=== PATIENT | male | born 1945 | race Caucasian/White ===

== ENCOUNTER 2021-07-13 18:19 | Emergency (ER) | payer OTHER, SELFPAY ==
--- NOTE | 2021-07-13 | DI.RAD.S_ITS ---
PROCEDURE: XR PELVIS 1-2V INDICATIONS: FALL TECHNIQUE: Single AP view(s) of the pelvis acquired. COMPARISON: None. FINDINGS: Bones: No fractures or dislocations. No suspicious bony lesions. Soft tissues: Visualized bowel gas pattern is normal. No suspicious soft tissue calcifications. IMPRESSION: No fracture identified. Dictated by: Delta Ruggiero M.D. on 07/13/2021 at 19:48 Approved by: Delta Ruggiero M.D. on 07/13/2021 at 19:49
[2021-07-13 18:24] VITALS: BP 142/86; PULSE 69; O2SAT 96
[2021-07-13 18:25] VITALS: BMI 28.5
[2021-07-13 18:29] VITALS: BP 142/86; PULSE 68; TEMP 36.7; O2SAT 98
--- NOTE | 2021-07-13 18:29 | DI.RAD.S_ITS ---
PROCEDURE: XR KNEE RT 1TO2V INDICATIONS: Trauma, fall, knee pain TECHNIQUE: Two views of the knee were acquired. COMPARISON: None. FINDINGS: No fracture demonstrated. Severe osteoarthritic changes in all 3 compartments of the knee. Moderate-sized knee joint effusion. IMPRESSION: No acute fracture. Moderate-sized knee joint effusion. Dictated by: Delta Ruggiero M.D. on 07/13/2021 at 19:44 Approved by: Delta Ruggiero M.D. on 07/13/2021 at 19:45
--- NOTE | 2021-07-13 18:30 | DI.RAD.S_ITS ---
PROCEDURE: XR FEMUR RT MIN 2V INDICATIONS: Trauma, fall, thigh pain TECHNIQUE: Two views of the femur were acquired. COMPARISON: None. FINDINGS: Bones: No fractures or dislocations. No suspicious bony lesions. Soft tissues: No suspicious soft tissue calcifications or masses. IMPRESSION: No fracture. Dictated by: Delta Ruggiero M.D. on 07/13/2021 at 19:49 Approved by: Delta Ruggiero M.D. on 07/13/2021 at 19:50
--- NOTE | 2021-07-13 18:50 | ED.FALL ---
HPI - Fall General Chief Complaint: Fall Stated Complaint: GLF on ice,right leg pain Time Seen by Provider: 07/13/21 19:49 Source: patient Mode of arrival: EMS History of Present Illness HPI Narrative: 76-year-old male nonsmoker without significant medical history presents by EMS for evaluation of a ground level fall suffered just prior to arrival. He stepped on some uneven ground and he tripped and fell forward on to both knees but significantly twisted his right knee. Since the incident he has been unable to of weight bear on his right knee. He denies any head neck or back pain. He has had no chest pain, shortness of breath nor nausea or vomiting. He is not dizzy nor weak or lightheaded. He denies any numbness, tingling or weakness of his extremities. He does have a longstanding history of a bad right knee in has been told he will likely need surgery at some point any ways. Related Data Allergies Allergy/AdvReac Type Severity Reaction Status Date / Time No Known Drug Allergies Allergy Verified 07/13/21 18:30 Review of Systems Review of Systems Narrative: GENERAL: Denies chills, fatigue, malaise, fever, sweats. HEENT: Denies sinus pain, ear pain, sore throat, difficulty swallowing, dizziness. RESPIRATORY: Denies dyspnea, cough, wheezing, hemoptysis, sputum. CARDIOVASCULAR: Denies chest pain, palpitations, orthopnea, edema, GASTROINTESTINAL: Denies nausea, vomiting, abdominal pain, diarrhea, constipation, melena. : Denies dysuria, frequency, incontinence, hematuria, urinary retention. MUSCULOSKELETAL: See HPI SKIN: Denies rash, skin lesions, or other NEUROLOGIC: Denies weakness, headache, numbness, change in speech, confusion, seizures, incoordination. PSYCHIATRIC: No concerning psychosocial issues. 12 point review of systems is negative except for those stated above Patient History Social History Smoking Status: Unknown if ever smoked Smoking Status: Unknown if ever smoked alcohol intake frequency: holidays/special occasions only Substance Use Type: does not use Exam Narrative Exam Narrative: GENERAL: [76] year old patient appears stated age. Well-developed patient, in mild distress. HEAD: Atraumatic. Normocephalic. EYES: Pupils equal round and reactive. Extraocular motions intact. No scleral icterus. No injection or drainage. ENT: Nose without bleeding, purulent drainage. Throat without erythema, tonsillar hypertrophy or exudate. Airway patent. NECK: Trachea midline. Non tender CARDIOVASCULAR: Regular rate and rhythm without murmurs, gallops, or rubs. RESPIRATORY: Clear to auscultation. Breath sounds equal bilaterally. No wheezes, rales, or rhonchi. GASTROINTESTINAL: Abdomen soft, non-tender, nondistended. EXTREMITIES: No pain in upper extremities or bilateral hips, right knee tender to palpate with mild joint effusion, no obvious ligamentous instability. There is some joint line tenderness at the lateral side. Minimal if any tenderness to palpation of the left knee BACK: Nontender without deformity or crepitance. No flank tenderness. NEURO: AOx3. SKIN: No rash or erythema of visible areas Initial Vital Signs Initial Vital Signs: Vital Signs Pulse Rate 69 07/13/21 18:24 Blood Pressure 142/86 H 07/13/21 18:24 Pulse Oximetry 96 07/13/21 18:24 Procedures Orthopedic Splinting/Casting Injury #1: Side: right Lower Extremity Injury Location: knee Lower Extremity Immobilizer: knee immobilizer Other Orthopedic Equipment: crutches Post splinting neuro exam: intact Post splinting vascular exam: intact Placed by: Nursing Course Orders Ordered: ED Orders 07/13/21 18:29 XR knee RT 1to2V Stat 07/13/21 18:30 XR femur RT min 2V Stat 07/13/21 20:52 CT LE RT wo con Stat Vital Signs Vital signs: Vital Signs - 8 hr 07/13/21 18:24 07/13/21 18:29 07/13/21 22:57 Temperature 98.1 F Pulse Rate 69 68 64 Blood Pressure 142/86 H 142/86 H 145/88 H Pulse Oximetry 96 98 97 MDM - Fall Imaging Data Extremity x-ray #1: Radiologist's Impression: Chart Viewer Diagnostics Subcategory All Activity ??:?? All Time ??:?? All Subcategories Filter Laboratory Imaging Microbiology Pathology Blood Bank Tests Cardiovascular Other Specialty DATE TYPE STATUS REF RANGE/AUTHOR Hx Today 20:[address] Signed Delta Ruggiero Today 18:30 Femur X-Ray Signed Delta Ruggiero Today 18:29 Knee X-Ray Signed Delta Ruggiero Today 18:29 Knee X-Ray Cancelled Today 00:00 Pelvis X-Ray Signed Delta Ruggiero Robert B ED 76, M?1945 MRN#? [id number] REG ER,?Main ED??R06?? 180.34cm 92.986kg BMI: 28.6kg/m? Fall Acc#? [id number] Resus Status Not Ordered No Hx Avail Special Indicators No Data to Display Home Meds Prescription Monitoring Program No Data to Display Allergies No Known Drug Allergies Problems ? ONSET Right knee injury Skin cancer of nose Vital Signs Today 22:57 BP 145/88?H Pulse 64? O2 Sat 97? Delivery Room Air? Diagnostics Reports Philip Chapman??76??M??1945 ? Allergy/Adv: No Known Drug Allergies (More??) Close Lower Extremity CT (Signed) Delta Ruggiero - 07/13/21 Femur X-Ray (Signed) Delta Ruggiero - 07/13/21 Knee X-Ray (Signed) Delta Ruggiero - 07/13/21 Knee X-Ray (Cancelled) 07/13/21 Pelvis X-Ray (Signed) Delta Ruggiero - 07/13/21 Launch?[place] [id number] XRay Report Signed Patient: Philip Chapman MR#: [id number] : 1945 Acct:[id number] Age/Sex: 76 / M Date of Service: 07/13/21 Loc: ED Accession Number: [id number] ?? Procedure: XR knee RT 1to2V Ordering Provider: Michael Ngo D.O. PROCEDURE:? XR KNEE RT 1TO2V ? INDICATIONS:? Trauma, fall, knee pain ? TECHNIQUE:? Two views of the knee were acquired.? ? COMPARISON:? None. ? FINDINGS:? ? No fracture demonstrated.? Severe osteoarthritic changes in all 3 compartments of the knee.? Moderate-sized knee joint effusion. ? ? IMPRESSION:? No acute fracture. Moderate-sized knee joint effusion. ? Dictated by: Delta Ruggiero M.D. on 07/13/2021 at 19:44 ? ? Approved by: Delta Ruggiero M.D. on 07/13/2021 at 19:45 ? CT LE: Radiologist's Impression: [address] [address] [address] Scan Report Signed Patient: Philip Chapman MR#: [id number] : 1945 Acct:[id number] Age/Sex: 76 / M Date of Service: 07/13/21 Loc: ED Accession Number: [id number] ?? Procedure: CT LE RT wo con Ordering Provider: Michael Ngo D.O. PROCEDURE:? CT LE RT WO CON ? INDICATIONS:? fall, severe knee pain, effusion, cannot weight bear ? TECHNIQUE:? Noncontrast 1-1.5 mm axial sections acquired from the mid-patella to the proximal tibia, with coronal and sagittal reformats.? ? COMPARISON:? None. ? FINDINGS:? ? There is no evidence of acute fracture by CT.? Normal patellar height and position.? Small knee joint effusion.? Severe osteoarthritic changes of the knee with joint space narrowing, subchondral sclerosis, subchondral cystic change, and large marginal osteophytes, within all 3 compartments.? No suspicious lytic or blastic osseous lesion. ? IMPRESSION:? No CT evidence of fracture. ? Dictated by: Delta Ruggiero M.D. on 07/13/2021 at 21:27 ? ? Approved by: Delta Ruggiero M.D. on 07/13/2021 at 21:29 ? MDM Narrative Medical decision making narrative: Patient with reassuring history and physical exam. Imaging demonstrates no sign of fracture or dislocation. Patient does very well in ambulation trial with knee immobilizer and crutches. Questions been answered to his apparent satisfaction, return precautions given Discharge Plan Departure Patient Disposition: Home Clinical Impression: Right knee injury Instructions: DI for Knee Sprain Activity Restrictions/Additional Instructions: *You have been diagnosed with [fall with right knee injury, physical exam, x-ray and CT are very reassuring and there is no evidence of fracture *What to do: *Please continue to take your regular medications as directed. [ ] New medication prescriptions sent to your pharmacy: [ ] [ ] New medication written as a paper prescription [x] No new medications given *Please follow up with your primary care provider in 2-3 days, call for an appointment. Let them know you were seen in the Emergency Department and that we ask that you be seen in follow up. We will electronically transmit a record of today's note if your PCP is in our system *If you do not have a primary care provider please contact the [facility] Resource line at [phone]. They will ask some questions about your medical history and help get you set up with a doctor in the community. *Return to Emergency Department if you should have any new, worsening or concerning symptoms, such as [fever greater than 101 F, shaking chills, worsening pain, persistent vomiting or other bothersome symptoms] Referrals: Mayela Daniels MD [Primary Care Provider] -
--- NOTE | 2021-07-13 20:01 | PC.NURSE ---
Agree with Jadyn Ku charting/assessment
--- NOTE | 2021-07-13 20:52 | DI.CT.S_ITS ---
PROCEDURE: CT LE RT WO CON INDICATIONS: fall, severe knee pain, effusion, cannot weight bear TECHNIQUE: Noncontrast 1-1.5 mm axial sections acquired from the mid-patella to the proximal tibia, with coronal and sagittal reformats. COMPARISON: None. FINDINGS: There is no evidence of acute fracture by CT. Normal patellar height and position. Small knee joint effusion. Severe osteoarthritic changes of the knee with joint space narrowing, subchondral sclerosis, subchondral cystic change, and large marginal osteophytes, within all 3 compartments. No suspicious lytic or blastic osseous lesion. IMPRESSION: No CT evidence of fracture. Dictated by: Delta Ruggiero M.D. on 07/13/2021 at 21:27 Approved by: Delta Ruggiero M.D. on 07/13/2021 at 21:29
[2021-07-13 22:57] VITALS: BP 145/88; PULSE 64; O2SAT 97
--- NOTE | 2021-07-13 23:04 | PC.NURSE ---
Agree with charting/assessment by Jadyn Bowling
== END 2021-07-14 00:10 | disposition home or self-care (01) ==
PROVIDERS: Emergency Provider Emergency Medicine; PCP Family Medicine
DX: S83.91XA Sprain of unspecified site of right knee, initial encounter (principal); W01.0XXA Fall on same level from slipping, tripping and stumbling without subsequent striking against object, initial encounter
CPT/HCPCS: 72170; 73552; 73560; 73700; 99284

== ENCOUNTER → 2022-01-09 13:40 | Outpatient (CLI) | payer OTHER, SELFPAY ==
[2022-01-09 15:43] LABS: COVID19 -Nasal RAPID Negative (Negative)
== END ==
PROVIDERS: PCP Family Medicine; Visit Provider Surgery
DX: Z20.822 Contact with and (suspected) exposure to COVID-19 (principal); Z01.812 Encounter for preprocedural laboratory examination
CPT/HCPCS: 87635; C9803

== ENCOUNTER 2022-01-10 10:55 | Day surgery (SDC) | payer OTHER, SELFPAY ==
[2022-01-03 15:01] VITALS: BMI 27.1
[2022-01-10] VITALS (10 sets, daily range): BP systolic 107–136; BP diastolic 56–80; PULSE 59–71; RESP 12–18; TEMP 36.1–36.4; O2SAT 94–99; BMI 27.1
--- NOTE | 2022-01-10 11:41 | PM.HP.1 ---
History of Present Illness History of Present Illness Date Patient Seen: 01/10/22 Time Patient Seen: 11:42 Chief complaint: SDC Narrative: 76-year-old man with a right inguinal hernia. See the office note for details. Patient History Medical History (Updated 01/03/22 @ 15:06 by Treva Orlando RN) HLD (hyperlipidemia) Hypertension Osteoarthritis Surgical History (Updated 12/30/21 @ 10:19 by Gabby Castaneda RN) H/O meniscectomy of right knee History of appendectomy History of total left knee replacement Family & Social History Social History: household members spouse Tobacco & Substance use: Smoking Status Former smoker alcohol intake current alcohol intake frequency holiday/special occasion Substance Use Type does not use Meds Home Medications and Allergies Home Medications Medication Instructions Recorded Confirmed Type amlodipine 10 mg tablet 10 mg PO DAILY 12/30/21 01/10/22 History atorvastatin 40 mg tablet 40 mg PO DAILY 12/30/21 01/10/22 History cholecalciferol (vitamin D3) 25 25 mcg PO DAILY 12/30/21 01/10/22 History mcg (1,000 unit) capsule hydrochlorothiazide 25 mg tablet 25 mg PO DAILY 12/30/21 01/10/22 History lisinopril 40 mg tablet 40 mg PO DAILY 12/30/21 01/10/22 History multivitamin 1 tab PO DAILY 12/30/21 01/10/22 History aspirin 81 mg capsule 81 mg PO DAILY 01/10/22 01/10/22 History Allergies Allergy/AdvReac Type Severity Reaction Status Date / Time No Known Drug Allergies Allergy Verified 01/10/22 10:47 Exam Vital Signs (past 8 hours): - 01/10/22 11:26 Temperature 97.1 F L Pulse Rate 69 Respiratory Rate 18 Blood Pressure 136/80 Pulse Oximetry 99 Oxygen Delivery Method Room Air Oxygen Delivery Method Room Air Narrative Exam Narrative: Right inguinal hernia Resp Effort & Inspection: normal respiratory effort Assessment & Plan Assessment and plan (1) Right inguinal hernia: Status: Acute Plan Plan for open right inguinal hernia repair with mesh. Time Spent With Patient Critical Care time: I spent a total of [] minutes of critical care time on this patient's care today; this time is exclusive of procedural time.
[2022-01-10] MEDS: LACTATED RINGERS 1,000 ML 84 ML IV ×2 (11:52→13:25)
[2022-01-10] MEDS: CEFAZOLIN 2 GM/20 ML SYRINGE IV (12:01)
--- NOTE | 2022-01-10 12:17 | SUR.OPER ---
Supine on padded OR bed, head on pillow, arms secured on padded arm boards at <90 degrees abduction, legs uncrossed, safety belt at thigh, tape over blanket over lower legs.
[2022-01-10] MEDS: LIDOCAINE 1% W/EPI 20 ML INJ (12:41)
[2022-01-10] MEDS: BUPIVACAINE 0.5% (PF) VIAL 30 ML INJ (12:42)
--- NOTE | 2022-01-10 14:17 | P.OP_ITS ---
Operative Date/Time/Diagnoses Date of procedure: 01/10/22 Time of procedure: 14:18 Pre-op diagnosis: Right inguinal hernia Post-op diagnosis: same Procedure & Clinicians Procedure: Open right inguinal hernia repair with mesh Same procedure as scheduled: Yes Surgeon: Atul Patino Anesthesia Type: General Operative Notes Procedure in detail: Preoperative antibiotic was administered. The patient was brought to the operating room and placed on the table in supine position general anesthesia was induced. The right groin was prepped and draped in the normal fashion and a time-out was performed. The large right inguinal hernia could not be reduced. Roughly 10 mL of local anesthetic were injected into the skin and subcutaneous adipose tissue over the right groin. A 12 cm incision was made over the right inguinal canal. Dissection was carried down through the subcutaneous adipose tissue. We came to the hernia before we came to the external oblique fascia. We bluntly dissected the hernia from the surrounding tissue. Even with full relaxation from anesthesia and Trendelenburg the hernia could not be reduced initially. We then opened the external oblique fascia about 2 cm laterally and were able to reduce the hernia. We then started to dissect the s ac but found that it reached all the way to the right testicle which had been pulled up into the inguinal canal from the dissection. A decision was made to transect the sac half way along the cord. The proximal end of the sac was dissected off the cord structures to the internal ring. There is also fatty lipoma. The proximal end of the sac was closed with a 3-0 Vicryl pursestring suture and pushed back into the abdomen along with a fatty lipoma. We then opened a large plug and patch. The plug was placed alongside the cord through the enlarged internal ring. The patch was then secured to the pubis and shelving edge of the inguinal ligament inferiorly and to the conjoint tendon medially with 3-0 Prolene sutures. Tails were overlapped to recreate the internal ring. The medial tail was secured to inguinal ligament with a Prolene stitch. The external oblique was then closed with a running 3-0 Vicryl stitch. Final Marcaine was injected. 3-0 Vicryl interrupted sutures were used to close up the subcutaneous adipose tissue and the dermis. The skin was closed with a running 4-0 Monocryl. EBL 30 mL At the conclusion of the case the right testicle was retracted into the scrotum. The patient was awakened and brought to recovery room. Post-operative Condition: stable Disposition: PACU
--- NOTE | 2022-01-10 14:36 | SUR.PHASEI ---
Spoke with Dr Gardner in OR #2 See new order for Robson for pain.
[2022-01-10] MEDS: HYDROCODONE/ACET 5/325 TABLET 1 TAB PO (14:40)
--- NOTE | 2022-01-10 14:48 | SUR.PHASEI ---
Pt transferred to [facility]PD. SBAR report to Miller Ceblalos. Tolerated apple sauce and pain pill.
== END 2022-01-10 15:35 | disposition home or self-care (01) ==
PROVIDERS: PCP Family Medicine; Referring Provider Surgery; Visit Provider Surgery
PROC: (CPT 49505; principal; 2022-01-10 12:15)
DX: K40.90 Unilateral inguinal hernia, without obstruction or gangrene, not specified as recurrent (principal); I10 Essential (primary) hypertension; E78.5 Hyperlipidemia, unspecified
CPT/HCPCS: 49505; J0690; J2250; J2704; J3010

== ENCOUNTER 2024-06-07 19:11 | Emergency (ER) | payer OTHER, SELFPAY ==
[2024-06-07 19:15] VITALS: BP 144/87; PULSE 72; RESP 18; TEMP 36.3; O2SAT 97; BMI 29.4
[2024-06-07 19:18] VITALS: PULSE 77; O2SAT 98
--- NOTE | 2024-06-07 19:22 | ED.GENADULT ---
HPI - General Adult General Chief complaint: Fall Stated complaint: GLF, LAC above eye Time Seen by Provider: 06/07/24 19:11 History of Present Illness HPI narrative: 79-year-old male presents by EMS from home for evaluation after head injury. He states that he was walking when he tried to turn around and lost his balance, falling forward and striking the front of his head against box. Denies LOC, denies use of blood thinners. Related Data Home Medications Medication Instructions Recorded Confirmed amlodipine 10 mg tablet 10 mg PO DAILY 12/30/21 01/10/22 atorvastatin 40 mg tablet 40 mg PO DAILY 12/30/21 01/10/22 cholecalciferol (vitamin D3) 25 25 mcg PO DAILY 12/30/21 01/10/22 mcg (1,000 unit) capsule hydrochlorothiazide 25 mg tablet 25 mg PO DAILY 12/30/21 01/10/22 lisinopril 40 mg tablet 40 mg PO DAILY 12/30/21 01/10/22 multivitamin 1 tab PO DAILY 12/30/21 01/10/22 aspirin 81 mg capsule 81 mg PO DAILY 01/10/22 01/10/22 Allergies Allergy/AdvReac Type Severity Reaction Status Date / Time No Known Drug Allergies Allergy Verified 02/06/22 11:43 Patient History Medical History HLD (hyperlipidemia) Osteoarthritis Hypertension Surgical History History of appendectomy History of total left knee replacement H/O meniscectomy of right knee Social History household members: spouse Smoking Status: Former smoker alcohol intake: current Smoking Status: Former smoker alcohol intake frequency: holidays/special occasions only Substance Use Type: does not use Exam Initial Vital Signs Initial Vital Signs: Vital Signs Temperature 97.4 F L 06/07/24 19:15 Pulse Rate 72 06/07/24 19:15 Respiratory Rate 18 06/07/24 19:15 Blood Pressure 144/87 H 06/07/24 19:15 Pulse Oximetry 97 06/07/24 19:15 Oxygen Delivery Method Room Air 06/07/24 19:15 Const: Awake, alert, no acute distress, nontoxic appearing HEENT: PERRL, EOMI, contusion anterior forehead Skin: 3cm C-shaped laceration over R eyebrow Neuro: AO x3, CN II-XII grossly intact, moves all extremities Procedures Laceration Repair Laceration 1: Site: face Side (If applicable): right Size (cm): 3 Description: irregular Depth: simple, single layer Local Anesthetic: lidocaine 1% and with epi Amount of anesthesia used (mL): 4 Pre-repair: wound explored and irrigated extensively Skin layer closed with: nylon Skin layer suture size: 5-0 Number of sutures: 6 Technique: simple, interrupted Course Orders Ordered: ED Orders 06/07/24 19:27 CT cervical spine wo con Stat CT head/brain wo con Stat Discontinued Medications Acetaminophen (Acetaminophen 325 Mg Tablet) 975 mg PO NOW ONE Stop: 06/07/24 19:28 Last Admin: 06/07/24 19:47 Dose: 975 mg Documented By: SB Lidocaine/Epinephrine (Lidocaine 1% W/Epi) 4 ml INJ INTRA-OP ONE Stop: 06/07/24 19:30 Last Admin: 06/07/24 19:46 Dose: 4 ml Documented By: SB Vital Signs Vital signs: Vital Signs - 8 hr 06/07/24 19:15 06/07/24 19:18 06/07/24 19:30 Temperature 97.4 F L Pulse Rate 72 77 72 Respiratory Rate 18 Blood Pressure 144/87 H Pulse Oximetry 97 98 96 Oxygen Delivery Method Room Air 06/07/24 19:31 06/07/24 19:31 06/07/24 20:00 Temperature Pulse Rate 73 Respiratory Rate Blood Pressure 135/85 128/61 Pulse Oximetry 95 Oxygen Delivery Method 06/07/24 20:00 06/07/24 20:28 06/07/24 20:28 Temperature Pulse Rate 78 68 Respiratory Rate 18 20 Blood Pressure 120/75 Pulse Oximetry 95 97 Oxygen Delivery Method Room Air Medical Decision Making Differential Diagnosis Differential Diagnosis: Laceration, abrasion, skin tear Imaging Data CT scan - head: Radiologist's Impression: PROCEDURE: CT HEAD/BRAIN WO CON INDICATIONS: GLF, FOREHEAD INJ TECHNIQUE: Noncontrast 4.5 mm thick angled axial sections acquired from the foramen magnum to the vertex, with coronal and sagittal reformats. For radiation dose reduction, the following was used: automated exposure control, adjustment of mA and/or kV according to patient size. COMPARISON: None. FINDINGS: Image quality: Diagnostic. CSF spaces: Basal cisterns are patent. No extra-axial fluid collections. The ventricles are symmetric in size and shape. Brain: No intracranial bleeds or masses. There is cerebral volume loss for age, with resultant ventricular and sulcal prominence. There are periventricular and deep white matter chronic small vessel ischemic changes. There is intracranial internal carotid artery atherosclerosis. Skull and face: Frontal scalp soft tissue contusion/hematoma. Calvarium and visualized facial bones appear intact, without suspicious lesions. Sinuses: Visualized sinuses and mastoids are clear. IMPRESSION: 1. CT head without acute intracranial abnormalities. 2. Age-related senescent changes and sequela of chronic small vessel ischemic disease. 3. Frontal scalp contusion/hematoma. No acute calvarial fractures. Dictated by: Negrito Mortensen M.D. on 06/07/2024 at 20:00 Approved by: Negrito Mortensen M.D. on 06/07/2024 at 20:01 CT - cervical spine: Radiologist's Impression: PROCEDURE: CT CERVICAL SPINE WO CON INDICATIONS: GLF, FOREHEAD INJ TECHNIQUE: Noncontrast 3 mm thick sections acquired from the skull base to the T4 level. Sagittal and coronal reformats were then constructed. For radiation dose reduction, the following was used: automated exposure control, adjustment of mA and/or kV according to patient size. COMPARISON: None. FINDINGS: Image quality: Excellent. Bones: No fractures or dislocations. Visualized superior ribs are intact. Disc space narrowing in the lower cervical spine. Hypertrophic facet joints throughout the exam Soft tissues: Prevertebral soft tissues are normal in thickness. No paravertebral hematomas. No apical pneumothoraces. IMPRESSION: No displaced fracture or traumatic subluxation. Degenerative disc disease and arthropathy. Approved by: Stuart Neri M.D. on 06/07/2024 at 19:12 MDM Narrative Additional Information: Ground level mechanical fall with forehead injury. CT negative for acute traumatic findings. Wound cleansed and repaired per procedure note. Dressing applied. Wound care instructions discussed with the patient at bedside. Discharge Plan Departure Patient Disposition: Home Clinical Impression: Forehead laceration Instructions: DI for Laceration Repair -- Simple Activity Restrictions/Additional Instructions: Your imaging today did not show any fractures or bleeding inside the brain. I placed 6 sutures in your forehead. These will need to be removed in 5-7 days. If you get them wet pat them dry. You may shower, but do not scrub the area. You will have a very large bruise, place ice over the area to decrease swelling and to help prevent pain. Take Tylenol as needed for discomfort. Prescriptions: No Action amlodipine 10 mg tablet 10 mg PO DAILY hydrochlorothiazide 25 mg tablet 25 mg PO DAILY lisinopril 40 mg tablet 40 mg PO DAILY atorvastatin 40 mg tablet 40 mg PO DAILY multivitamin Tablet 1 tab PO DAILY cholecalciferol (vitamin D3) 25 mcg (1,000 unit) capsule 25 mcg PO DAILY aspirin 81 mg Capsule 81 mg PO DAILY Referrals: Mayela Daniels MD [Primary Care Provider] - Stand Alone Forms: Patient Portal/API/Survey
--- NOTE | 2024-06-07 19:27 | DI.CT.S_ITS ---
PROCEDURE: CT CERVICAL SPINE WO CON INDICATIONS: GLF, FOREHEAD INJ TECHNIQUE: Noncontrast 3 mm thick sections acquired from the skull base to the T4 level. Sagittal and coronal reformats were then constructed. For radiation dose reduction, the following was used: automated exposure control, adjustment of mA and/or kV according to patient size. COMPARISON: None. FINDINGS: Image quality: Excellent. Bones: No fractures or dislocations. Visualized superior ribs are intact. Disc space narrowing in the lower cervical spine. Hypertrophic facet joints throughout the exam Soft tissues: Prevertebral soft tissues are normal in thickness. No paravertebral hematomas. No apical pneumothoraces. IMPRESSION: No displaced fracture or traumatic subluxation. Degenerative disc disease and arthropathy. Approved by: Stuart Neri M.D. on 06/07/2024 at 19:12
--- NOTE | 2024-06-07 19:27 | DI.CT.S_ITS ---
PROCEDURE: CT HEAD/BRAIN WO CON INDICATIONS: GLF, FOREHEAD INJ TECHNIQUE: Noncontrast 4.5 mm thick angled axial sections acquired from the foramen magnum to the vertex, with coronal and sagittal reformats. For radiation dose reduction, the following was used: automated exposure control, adjustment of mA and/or kV according to patient size. COMPARISON: None. FINDINGS: Image quality: Diagnostic. CSF spaces: Basal cisterns are patent. No extra-axial fluid collections. The ventricles are symmetric in size and shape. Brain: No intracranial bleeds or masses. There is cerebral volume loss for age, with resultant ventricular and sulcal prominence. There are periventricular and deep white matter chronic small vessel ischemic changes. There is intracranial internal carotid artery atherosclerosis. Skull and face: Frontal scalp soft tissue contusion/hematoma. Calvarium and visualized facial bones appear intact, without suspicious lesions. Sinuses: Visualized sinuses and mastoids are clear. IMPRESSION: 1. CT head without acute intracranial abnormalities. 2. Age-related senescent changes and sequela of chronic small vessel ischemic disease. 3. Frontal scalp contusion/hematoma. No acute calvarial fractures. Dictated by: Negrito Mortensen M.D. on 06/07/2024 at 20:00 Approved by: Negrito Mortensen M.D. on 06/07/2024 at 20:01
[2024-06-07 19:30] VITALS: PULSE 72; O2SAT 96
[2024-06-07 19:31] VITALS: BP 135/85; PULSE 73; O2SAT 95
[2024-06-07] MEDS: LIDOCAINE 1% W/EPI 4 ML INJ (19:46)
[2024-06-07] MEDS: ACETAMINOPHEN 325 MG TABLET 975 MG PO (19:47)
[2024-06-07 20:00] VITALS: BP 128/61; PULSE 78; RESP 18; O2SAT 95
[2024-06-07 20:28] VITALS: BP 120/75; PULSE 68; RESP 20; O2SAT 97
== END 2024-06-07 20:40 | disposition home or self-care (01) ==
PROVIDERS: Emergency Provider Emergency Medicine; PCP Family Medicine
DX: S01.81XA Laceration without foreign body of other part of head, initial encounter (principal); W18.09XA Striking against other object with subsequent fall, initial encounter
CPT/HCPCS: 12013; 70450; 72125; 99283; 99284